=== PATIENT | female | born 1960 | race Two or more races ===

== ENCOUNTER 2019-08-09 07:54 | Day surgery (SDC) | payer OTHER ==
[~2019-08-09] VITALS: Ht 154.9 cm; Wt 45.8 kg
[~2019-08-09 07:54] MED LIST: LR 1000ml 1,000 ML IVLG SCH
[2019-08-09] MEDS ORDERED: BIOTIN5 MG PO (08:19)
[2019-08-09] MEDS ORDERED: VITAMIN B COMP1 EAC2 ORAL (08:19)
[2019-08-09] MEDS ORDERED: CALCIUM600 M1 PO (08:19)
[2019-08-09 08:33] VITALS: BP 100/57
[2019-08-09] MEDS ORDERED: LR 1000ml 1,000 ML IVLG SCH (08:44)
[2019-08-09] MEDS ORDERED: fentaNYL 100 mcg/2 mL IV PRN (08:45)
[2019-08-09] MEDS ORDERED: Midazolam 2mg/2ml Inj IVP PRN (08:45)
[2019-08-09] MEDS ORDERED: Atropine Inj 1mg/10ml Syr IV PRN (08:45)
[2019-08-09] MEDS ORDERED: DiphenhydrAMINE 50mg/ml Inj IVP PRN (08:45)
--- NOTE | 2019-08-09 08:48 | Anethesia Preoperative Eval ---
Anesthesia Pre-op PMH/ROS General Date of Evaluation: Aug 09, 2019 Time of Evaluation: 08:45 Anesthesiologist: danisha ASA Score: ASA 2 Mallampati Score Class I : Soft palate, uvula, fauces, pillars visible Class II: Soft palate, uvula, fauces visible Class III: Soft palate, base of uvula visible Class IV: Only hard plate visible Mallampati Classification: Class II Surgeon: tiffanie Diagnosis: hx/o colon polyps Surgical Procedure: colonoscopy Anesthesia History: none Social History: alcohol use Family History: no anesthesia problems Allergies: Coded Allergies: No Known Allergies (Unverified , 08/08/19) Medications: see eMAR Patient NPO?: Yes Anesthesia Pre-op Phys. Exam Physician Exam Last Vital Signs Date Time Temp Pulse Resp B/P (MAP) Pulse Ox O2 Delivery O2 Flow Rate FiO2 08/09/19 08:33 97.8 54 20 100/57 97 Room Air Constitutional: NAD Neurologic: CN 2-12 intact Cardiovascular: RRR Respiratory: CTA Gastrointestinal: S/NT/ND Airway Exam Mallampati Score: Class II MO: full Neck: flexible TMD: 2fb ROM: full Anesthesia Pre-op A/P Risk Assessment & Plan Assessment: asa2 Plan: mac Status Change Before Surgery: No Pre-Antibiotics Drug: Flower Castellon MD Aug 09, 2019 08:48
[2019-08-09] MEDS ORDERED: Lidocaine 1% MPF 10mg/ml 5ml ONE (09:00)
[2019-08-09] MEDS ORDERED: Propofol 200mg/20ml IV ONE (09:00)
[2019-08-09] MEDS ORDERED: LR 1000ml ONE (09:00)
--- NOTE | 2019-08-09 09:40 | Short Stay Surgery H&P ---
History of Present Illness History of Present Illness Chief Complaint see H&P typed HPI Mary Jane Guerra is a 59 year old female who was admitted on for Hx Of Polyps Patient History Allergies: Coded Allergies: No Known Allergies (Unverified , 08/08/19) Medication History Scheduled Biotin (Biotin), 5 MG PO DA, (Reported) Calcium Carbonate (Calcium), 600 MG PO DA, (Reported) Vitamin B Complex (Vitamin B Complex), 1 CAP ORAL DA, (Reported) Physical Exam Vital Signs Last Vital Signs Date Time Temp Pulse Resp B/P (MAP) Pulse Ox O2 Delivery O2 Flow Rate FiO2 08/09/19 08:33 97.8 54 20 100/57 97 Room Air Plan Attestation Are the patient's medical conditions optimized for surgery? Adin Jasso MD Aug 09, 2019 09:40
--- NOTE | 2019-08-09 09:40 | Pre-Procedure Note/Attestation ---
Pre-Procedure Note/Attestation Complete Prior to Procedure Planned Procedure: not applicable Procedure Narrative: colonoscopy Indications for Procedure Pre-Operative Diagnosis: screening, h/o colon polyp Attestation I attest that I discussed the nature of the procedure; its benefits; risks and complications; and alternatives (and the risks and benefits of such alternatives ), prior to the procedure, with the patient (or the patient's legal sales representative sales manager). I attest that, if there was a reasonable possibility of needing a blood transfusion, the patient (or the patient's legal sales representative sales manager) was given the [facility] standardized written summary, pursuant to the Travis Vincent Blood Safety Act ([place] Health and Safety Code # 1645, as amended). I attest that I re-evaluated the patient just prior to the surgery and that there has been no change in the patient's H&P, except as documented below: Adin Jasso MD Aug 09, 2019 09:40
--- NOTE | 2019-08-09 09:58 | Endoscopy Procedure Note ---
Endoscopy Procedure Note General Indication for Procedure: h/o polyp Procedures Performed: colonoscopy Operative Findings/Diagnosis: normal Specimen: yes Anesthesia Anesthesiologist: Florencio Barriga Anesthesia: MAC Inserted Devices Implant(s) used?: No GI Core Measures 50 yrs or older w/o bx or poly: Yes 10yrs. F/U recommended: No If not recommended, why?: Above average risk 18 years or older w/prev. colo: Yes <3yrs. since last colonoscopy: No Med reason:<3 yrs.: System Reason:<3 yrs.: Last colonoscopy >= to 3yrs: Yes Adin Jasso MD Aug 09, 2019 09:58
--- NOTE | 2019-08-09 09:59 | Brief Operative Note ---
Immediate Post Operative Note Operative Note Chief Complaint: h/o polyps Pre-op Diagnosis: screening, h/o colon polyp Procedure: colon Post-op Diagnosis: normal Specimen: yes Complications: none Condition: stable Fluids: per anesthesia Estimated Blood Loss: none Implant(s) used?: No Adin Jasso MD Aug 09, 2019 09:59
[2019-08-09 10:04] VITALS: BP 96/66
[2019-08-09 10:10] VITALS: BP 98/72
[2019-08-09 10:20] VITALS: BP 93/63
[2019-08-09 10:30] VITALS: BP_SYST 104; BP_SYST 108; BP_DIAS 61; BP_DIAS 67
[2019-08-09 11:00] VITALS: BP 115/69
--- NOTE | 2019-08-10 01:01 | Operative Note - Dictated ---
DATE OF OPERATION: 08/09/2019 GASTROENTEROLOGY PROCEDURE REPORT SURGEON: Adin Jasso M.D. PROCEDURE: Colonoscopy. PRE-ENDOSCOPIC DIAGNOSIS: History of colonic polyps. POST-ENDOSCOPIC DIAGNOSIS: Normal colonoscopy including 10 cm of terminal ileum. DESCRIPTION OF PROCEDURE: The procedure, its risks, indications, alternatives, and possible complications were explained and informed consent was obtained. The patient was then sedated and a rectal exam was done. Then, the colonoscope was introduced in the rectum and advanced to 10 centimeter into the terminal ileum. The colonoscope was gradually withdrawn and the mucosa examined carefully. No abnormalities were identified. The colonoscope was removed and the patient was sent to Recovery in good condition. COMPLICATIONS: None. RECOMMENDATIONS: 1. Follow up with primary physician. 2. Repeat colonoscopy in 5 years. Thank you for asking me to participate in the care of this patient. Adin Jasso M.D. DR: BARRIE JOB#: [id number] CC: Li Thompson M.D. MTDD
--- NOTE | 2019-08-10 08:06 | Immediate Post-Op Evaluation ---
Immediate Post-Op Evalulation Immediate Post-Op Evalulation Procedure: colonoscopy Date of Evaluation: Aug 09, 2019 Time of Evaluation: 10:16 IV Fluids: 350ml lr Blood Products: none Estimated Blood Loss: negligible Blood Pressure Systolic: 96 Blood Pressure Diastolic: 66 Pulse Rate: 62 Respiratory Rate: 18 O2 Sat by Pulse Oximetry: 100 Temperature (Fahrenheit): 97.3 Pain Score (1-10): 0 Nausea: No Vomiting: No Complications none Patient Status: awake, reacts, patent Hydration Status: adequate Drug: Flower Castellon MD Aug 10, 2019 08:06
[2019-08-10 08:07] VITALS: BP 98/72
--- NOTE | 2019-08-10 08:07 | 48 Hour Post Anesthesia Eval ---
Post Anesthesia Evaluation Procedure: colonoscopy Date of Evaluation: Aug 09, 2019 Time of Evaluation: 10:18 Blood Pressure Systolic: 98 0: 72 Pulse Rate: 58 Respiratory Rate: 18 Temperature (Fahrenheit): 97.3 O2 Sat by Pulse Oximetry: 100 Airway: patent Nausea: No Vomiting: No Pain Intensity: 0 Hydration Status: adequate Cardiopulmonary Status: stable Mental Status/LOC: patient returned to baseline Post-Anesthesia Complications: none Follow-up care needed: N/A Flower Salvador MD Aug 10, 2019 08:07
== END 2019-08-09 11:10 | disposition home or self-care (01) ==
LOC: GAS 07:54
DX: K63.5 Polyp of colon (principal); Z86.010 Personal history of colon polyps
CPT/HCPCS: 45378; J2704; J7120; 94003; 94150